=== PATIENT | female | born 1945 | race Caucasian/White ===

== ENCOUNTER 2017-11-25 10:12 | Emergency (ER) | payer MEDICARE, BC ==
[2006-05-20 12:45] VITALS: BP 113/62
[~2017-11-25] VITALS: Ht 152.4 cm; Wt 61.4 kg
[~2017-11-25 10:12] MED LIST: CALCIUM 500500 M2 PO; COMBIVENT INH14.7 GM IH; DALIRESP500 MCG PO; FLONASE NASAL S16 GM NS; MUCINEX DM 30 M1 TE1 PO; MULTIPLE VITAMI1 CAP PO; NYSTATIN OR100 MU/ML PO; PREDNISONE20 MG PO; PROTONIX 40MG T40 MG PO; REMERON15 MG PO; RT ADVAIR HFA 2312 G IH; SINGULAIR10 MG PO; VITAMIN D1000 IU PO; ZOCOR40 MG PO
[2017-11-25 10:16] VITALS: TEMP 98.2
[2017-11-25] MEDS ORDERED: TYLENOL 500MG500 MG PO (10:31)
[2017-11-25] MEDS ORDERED: IPRATROPIUM BROM3 M1 INH (10:45)
[2017-11-25] MEDS ORDERED: CYMBALTA 30MG30 MG PO (10:45)
[2017-11-25] MEDS ORDERED: LASIX 20MG TABL20 MG PO (10:46)
[2017-11-25] MEDS ORDERED: PRAVACHOL 40MG40 MG PO (10:46)
[2017-11-25] MEDS ORDERED: PREDNISONE 5MG5 MG PO (10:47)
[2017-11-25] MEDS ORDERED: PROAIR HFA0.09 MG/AC INH (10:47)
[2017-11-25] MEDS ORDERED: XARELTO20 MG PO (10:48)
[2017-11-25] MEDS ORDERED: RIOCIGUAT PO (10:48)
[2017-11-25] MEDS ORDERED: STIOLTO RESPIMAT4 GM INH (10:49)
[2017-11-25] MEDS ORDERED: PERCOCET 325 MG1 TA2 PO (11:03)
[2017-11-25 11:22] VITALS: BP 130/59; PULSE 74
== END 2017-11-25 11:22 | disposition home or self-care (01) ==
LOC: COL.ER 10:12
DX: S89.92XA Unspecified injury of left lower leg, initial encounter (principal); E78.5 Hyperlipidemia, unspecified; J44.9 Chronic obstructive pulmonary disease, unspecified; Z90.49 Acquired absence of other specified parts of digestive tract; Z90.89 Acquired absence of other organs; Z90.710 Acquired absence of both cervix and uterus; Z87.891 Personal history of nicotine dependence; Z79.51 Long term (current) use of inhaled steroids; W01.0XXA Fall on same level from slipping, tripping and stumbling without subsequent striking against object, initial encounter; Y92.009 Unspecified place in unspecified non-institutional (private) residence as the place of occurrence of the external cause

== ENCOUNTER → 2018-04-26 | Outpatient (REF) ==
[~2018-04-26] MED LIST changes: +CYMBALTA 30MG30 MG PO; +IPRATROPIUM BROM3 M1 INH; +LASIX 20MG TABL20 MG PO; +PERCOCET 325 MG1 TA2 PO; +PRAVACHOL 40MG40 MG PO; +PREDNISONE 5MG5 MG PO; +PROAIR HFA0.09 MG/AC INH; +RIOCIGUAT PO; +STIOLTO RESPIMAT4 GM INH; +TYLENOL 500MG500 MG PO; +XARELTO20 MG PO
[2018-04-26 19:00] LABS: THYROID STIMULATING HORMONE 2.06 uIU/mL (0.465-4.680)
== END ==
LOC: ZLAB.WCH 17:33
PROVIDERS: Internal Medicine
DX: Z01.89 Encounter for other specified special examinations (principal)

== ENCOUNTER 2018-11-14 11:52 | Day surgery (SDC) | payer MEDICARE, BC ==
[2006-05-20 12:45] VITALS: BP 113/62
[~2018-11-14] VITALS: Ht 152.4 cm; Wt 61.3 kg
--- NOTE | 2018-11-14 12:35 | NUR ---
Initial visit; Patient thanked [facility] Specialist for offering encouragement and prayer prior to her surgical procedure.
[2018-11-14 13:08] LABS: HEMATOCRIT 30.1 % (37.0-47.0); HEMOGLOBIN 9.1 g/dl (12.5-16.0)
[2018-11-14 13:11] VITALS: BP 127/53; PULSE 64; TEMP 97.9
[2018-11-14 15:37] VITALS: BP 105/38; PULSE 65; TEMP 98.5
--- NOTE | 2018-11-14 15:37 | NUR ---
Patient brought back from OR to [facility] via cart. Patient alert and oriented, responding to verbal stimuli. Placed on 5L O2 via NC. Vital signs stable. Report recieved from Tj KHALIL and Wilmar DEVI. Patient requesting water and muffin at this time. Call white within reach, will continue to monitor.
[2018-11-14 15:45] VITALS: BP 120/67; PULSE 68
[2018-11-14 16:00] VITALS: BP 123/48; PULSE 65
--- NOTE | 2018-11-14 16:00 | NUR ---
Patient at bedside. Tolerating food and drink without difficulty. Vitals remain stable. Denies any pain or nausea. Will continue to monitor.
[2018-11-14 16:15] VITALS: BP 118/50; PULSE 67
[2018-11-14 16:30] VITALS: BP 105/54; PULSE 68
--- NOTE | 2018-11-14 16:30 | NUR ---
Patient reports that she is feeling ready to go home. IV removed. Discharge instructions reviewed with patient and . Verbalized understanding. Verbalized understanding that blood thinner can be restarted on wednesday11/16/18. Patient to get dressed at this time.
--- NOTE | 2018-11-14 16:55 | NUR ---
Patient brought down to waiting room via wheel chair. Patient to be driven home by .
== END 2018-11-14 16:55 | disposition home or self-care (01) ==
LOC: SDCO 11:52
PROVIDERS: Surgery
DX: K64.8 Other hemorrhoids (principal); D50.0 Iron deficiency anemia secondary to blood loss (chronic); Z86.711 Personal history of pulmonary embolism; Z79.01 Long term (current) use of anticoagulants; J98.4 Other disorders of lung; Z90.710 Acquired absence of both cervix and uterus; Z90.49 Acquired absence of other specified parts of digestive tract; Z80.6 Family history of leukemia; Z80.7 Family history of other malignant neoplasms of lymphoid, hematopoietic and related tissues; Z79.899 Other long term (current) drug therapy; G47.33 Obstructive sleep apnea (adult) (pediatric); I27.20 Pulmonary hypertension, unspecified; Z87.891 Personal history of nicotine dependence; I10 Essential (primary) hypertension; J43.9 Emphysema, unspecified; M79.7 Fibromyalgia; F32.9 Major depressive disorder, single episode, unspecified; D68.62 Lupus anticoagulant syndrome; E74.39 Other disorders of intestinal carbohydrate absorption; Z88.6 Allergy status to analgesic agent; Z88.1 Allergy status to other antibiotic agents; Z88.5 Allergy status to narcotic agent; Z99.81 Dependence on supplemental oxygen; E78.5 Hyperlipidemia, unspecified; M81.0 Age-related osteoporosis without current pathological fracture; I27.24 Chronic thromboembolic pulmonary hypertension; I26.99 Other pulmonary embolism without acute cor pulmonale; F44.5 Conversion disorder with seizures or convulsions
CPT/HCPCS: J2250; J3010

== ENCOUNTER 2021-07-21 07:21 | Day surgery (SDC) | payer MEDICARE, BC ==
[2006-05-20 12:45] VITALS: BP 113/62
[~2021-07-21] VITALS: Ht 152.4 cm; Wt 52.5 kg
[~2021-07-21 07:21] MED LIST changes: -CYMBALTA 30MG30 MG PO; +CYMBALTA 60MG60 MG PO
[2021-07-21] MEDS ORDERED: K-TAB20 PO (08:04)
[2021-07-21] MEDS ORDERED: OXYGEN (08:04)
[2021-07-21] MEDS ORDERED: DEMADEX 20MG20 M1 PO (08:05)
[2021-07-21 08:06] VITALS: BP 115/65; PULSE 60; TEMP 97.7
[2021-07-21] MEDS ORDERED: ZOCOR 40MG40 MG PO (08:06)
[2021-07-21 10:05] VITALS: BP 109/87; PULSE 72; TEMP 97.1
[2021-07-21 10:20] VITALS: BP 120/78; PULSE 79
[2021-07-21 10:35] VITALS: BP 127/73; PULSE 77
--- NOTE | 2021-07-21 13:17 | NUR ---
1005: Patient arrived [facility]. Patient is drowsy but arousable. Vital signs stable on baseline 4L O2. Report received from SIMRAN Lo. Patient requesting Pepsi and blueberry muffin. Patient denies nausea and pain. at bedside. Dr. Martinez in to speak with patient and family. Call light left within reach. 1020: Patient vitally stable. Tolerating food and drink well. Denies pain or nausea at this time. 1035: Meets discharge criteria. IV removed without complications. 1045: Went through discharge instructions with patient and family member. 1055: Patient got dressed. Escorted to patient entrance via wheelchair. Patient got into personal vehicle unassisted and left in the care of their family.
== END 2021-07-21 11:00 | disposition home or self-care (01) ==
LOC: SDCO 07:21
DX: D12.3 Benign neoplasm of transverse colon (principal); D12.0 Benign neoplasm of cecum; D50.9 Iron deficiency anemia, unspecified; J98.4 Other disorders of lung; K62.5 Hemorrhage of anus and rectum; K64.1 Second degree hemorrhoids; Z79.01 Long term (current) use of anticoagulants; Z87.891 Personal history of nicotine dependence
CPT/HCPCS: J2250; J2704; J7120